=== PATIENT | female | born 1940 | race Caucasian/White ===

== ENCOUNTER → 2024-09-27 | Outpatient (CLI) | payer OTHER ==
--- NOTE | 2024-09-27 17:06 | HMCIMG ---
Exam Type: HAND 3+VWS RT History: RT hand pain Comparison: none Findings: The examination shows degenerative changes with narrowing of the interphalangeal joint spaces, with subchondral sclerosis. No fractures or dislocations are seen. There are no radiopaque foreign bodies. There are no areas of bone destruction. Impression: Osteoarthritis of the hand.
== END | disposition home or self-care (01) ==
LOC: RAH 16:04
PROVIDERS: ATTEND Internal Medicine
DX: M19.041 Primary osteoarthritis, right hand (principal); M25.841 Other specified joint disorders, right hand; M79.641 Pain in right hand
CPT/HCPCS: 73130